=== PATIENT | female | born 1960 | race Caucasian/White ===

== ENCOUNTER 2021-07-22 08:53 | Inpatient (IN) | payer BC ==
[~2021-07-22] VITALS: Ht 165.1 cm; Wt 79.5 kg
[2021-07-22] VITALS (7 sets, daily range): BP systolic 117–134; BP diastolic 57–69
[2021-07-22] MEDS ORDERED: CefTRIAXone 2gm/NS 100ml IVPB 100 ML IV ONE (09:05)
[2021-07-22] MEDS ORDERED: normal saline 1000ml 1,000 ML IV SCH ×2 (09:05→11:20)
--- NOTE | 2021-07-22 09:05 | NUR ---
pt with slurred speech able to give us her birthdate. moans to pain.
[2021-07-22] MEDS: normal saline 1000ml 1,000 ML IV SCH ×9 (09:16→23:00)
[2021-07-22] MEDS ORDERED: diltiazem 5mg/ml 5ml inj. IV ONE (09:20)
--- NOTE | 2021-07-22 09:20 | NUR ---
TEMP 96.3 BEAR HUGGER APPLIED.
[2021-07-22 09:45] LABS: ABG BASE EXCESS -32.4 mmol/L (-2.0-2.0); ABG HCO3 1.6 mmol/L (22.0-26.0); ABG OXYGEN SATURATION 98.3 % (94-97); ABG PCO2 (T) 10.7 mmHg (32.0-45.0); ABG PO2 (T) 140.7 mmHg (75.0-100.0); ALLEN'S TEST POSITIVE; FCOHb 0.4 % (0.0-3.9); FMetHb 0.2 % (0.0-1.5); FO2Hb 97.7 % (94-97); PATIENT TEMPERATURE 35.7; TOTAL HEMOGLOBIN 13.9 G/dl (12.0-16.0)
[2021-07-22 09:54] LABS: BASOPHILS # (AUTO) 0.1 X10'3 (0-0.2); BASOPHILS % (AUTO) 0.3 % (0-1); EOSINOPHILS % (AUTO) 0.1 % (0-6); LYMPHOCYTES # (AUTO) 2.4 X10'3 (1.1-4.8); LYMPHOCYTES % (AUTO) 10.4 % (21-51); MEAN PLATELET VOLUME 10.7 FL (7.4-10.4); MONOCYTES # (AUTO) 1.7 X10'3 (0-0.9); MONOCYTES % (AUTO) 7.5 % (2-12); NEUTROPHILS # (AUTO) 18.6 X10'3 (1.8-7.7); NEUTROPHILS % (AUTO) 81.7 % (42-75); PLATELET COUNT 523 X10'3 (140-440); RED CELL DISTRIBUTION WIDTH 15.6 % (11.5-14.5); WHITE BLOOD COUNT 22.8 X10'3 (4.5-11.0)
[2021-07-22 10:17] LABS: CLARITY,URINE CLEAR (Clear); GLUCOSE, URINE >=1000 mg/dl (Neg); KETONES,URINE >=80 mg/dl (Neg); LEUKOCYTE ESTERASE ,URINE NEGATIVE (Neg); NITRITES, URINE NEGATIVE (Neg); OCCULT BLOOD,URINE MODERATE (Neg); PH,URINE 5.5 (4.8-8.0); PROTEIN,URINE 30 mg/dl (Neg); UROBILINOGEN,URINE 0.2 E.U/dL (0.2-1.0)
[2021-07-22] MEDS: insulin regular, human U-100 3ml vial - multi-dose IV PRN ×2 (10:18→11:27)
[2021-07-22 10:19] LABS: HEMATOCRIT 39.5 % (35.0-45.0); HEMOGLOBIN 13.6 g/dl (12.0-16.0); MEAN CORPUSCULAR HEMOGLOBIN 27.7 PG (27.0-31.0); MEAN CORPUSCULAR HGB CONC 34.4 g/dL (33.0-36.5); MEAN CORPUSCULAR VOLUME 80.5 FL (78-98)
[2021-07-22 10:23] LABS: COLOR,URINE STRAW (Yellow); UA COLLECTION TYPE FOLEY CATH
[2021-07-22] MEDS: sodium bicarbonate (8.4%) inj. 100 MEQ in dextrose 5%-water 1,000 ML IV SCH ×2 (10:25→20:55)
[2021-07-22 10:26] LABS: RBC,URINE 0-2 /HPF (0-2); WBC,URINE 0-4 /HPF (0-4)
[2021-07-22 10:27] LABS: BACTERIA,URINE FEW /HPF (Neg); COARSE GRANULAR CAST 0-3 /LPF (NEGATIVE); FINE GRANULAR CAST 0-3 /LPF (NEGATIVE); HYALINE CASTS 0-3 /LPF (NEGATIVE); MUCUS STRANDS FEW /LPF (Neg); SQUAMOUS EPITHELIAL CELL,UR FEW /LPF (FEW)
[2021-07-22] MEDS ORDERED: vancomycin/NS 1 GM ADD-VANTAGE 250 ML IV ONE (10:30)
[2021-07-22 10:34] LABS: ALANINE AMINOTRANSFERASE 20 U/L (12-78); ALBUMIN 3.8 G/DL (3.4-5.0); ALKALINE PHOSPHATASE 123 IU/L (46-116); ASPARTATE AMINO TRANSFERASE 20 U/L (10-37); BILIRUBIN,TOTAL 0.4 MG/DL (0.1-1.0); BLOOD UREA NITROGEN 28 MG/DL (7-18); BUN/CREATININE RATIO 22.8 (6.6-38.0); CALCIUM 9.3 MG/DL (8.5-10.1); CHLORIDE 108 MMOL/L (99-107); CREATININE 1.23 MG/DL (0.40-0.90); LARGE PLATELETS FEW; MAGNESIUM 2.8 MG/DL (1.5-2.4); PHOSPHORUS 4.9 MG/DL (2.3-4.5); PLATELET ESTIMATE INCREASED; SODIUM 139 MMOL/L (135-145); TOTAL CELLS COUNTED 100; TOTAL PROTEIN 7.5 G/DL (6.4-8.2); eGFR 44 ML/MIN
[2021-07-22 10:37] LABS: POTASSIUM 5.6 MMOL/L (3.5-5.1)
[2021-07-22 10:38] LABS: ANION GAP 26 (8-16)
[2021-07-22 10:39] LABS: GLUCOSE 533 MG/DL (70-104); TOTAL CARBON DIOXIDE < 5 MMOL/L (24-32)
[2021-07-22 11:11] LABS: ABG BASE EXCESS -33.8 mmol/L (-2.0-2.0); ABG HCO3 1.9 mmol/L (22.0-26.0); ABG PCO2 (T) 13.8 mmHg (32.0-45.0); ABG PO2 (T) 133.1 mmHg (75.0-100.0); ALLEN'S TEST POSITIVE; FCOHb 0.3 % (0.0-3.9); FMetHb 0.2 % (0.0-1.5); FO2Hb 97.5 % (94-97); TOTAL HEMOGLOBIN 13.9 G/dl (12.0-16.0)
[2021-07-22] MEDS ORDERED: potassium CL 20mEq in D5-1/2NS 1,000 ML IV PRN (11:20)
[2021-07-22] MEDS ORDERED: sodium bicarbonate (8.4%) inj. 100 MEQ in dextrose 5% water 500ml 500 ML IV PRN (11:20)
[2021-07-22] MEDS ORDERED: Insulin Reg/NS 100units/100mL 100 ML IV SCH ×2 (11:20→15:00)
--- NOTE | 2021-07-22 11:55 | NUR ---
GLASCOW: EYES OPEN TO PAIN, ,MOTOR WITHDRAWS TO PAIN, VERBAL INCOMPREHENSIBLE. TOTAL:8
--- NOTE | 2021-07-22 11:55 | NUR ---
pt unresponsive, unable answer questions. does not respond to pain. hr 90's low 100, rr 20.
[2021-07-22 12:03] LABS: CREATINE KINASE 116 U/L (26-192); ETHANOL < 0.010 GM/DL (0.0-0.010)
[2021-07-22 12:06] LABS: ACETAMINOPHEN < 2.0 UG/ML (10-30)
--- NOTE | 2021-07-22 12:16 | NUR ---
back from ct scan via gurmauricio and nurse.
--- NOTE | 2021-07-22 12:20 | NUR ---
pollution control technician at bedside.
--- NOTE | 2021-07-22 12:35 | NUR ---
pupils 2.0 non reactive to light jonnie.
[2021-07-22] MEDS ORDERED: levetiracetam inj 1,000 MG in normal saline 100ml IV soln 90 ML IV STA (12:38)
[2021-07-22] MEDS ORDERED: levetiracetam-NS 1000mg/100ml 100 ML IV STA (12:41)
--- NOTE | 2021-07-22 12:55 | NUR ---
slightly responsive to touch. hermna.
--- NOTE | 2021-07-22 13:00 | NUR ---
DRAINED ROSALES 900CC CLEAR URINE
[2021-07-22] MEDS ORDERED: LANTUS SQ (13:14)
[2021-07-22] MEDS ORDERED: METF-438 PO (13:14)
[2021-07-22] MEDS ORDERED: DULO20CA18 PO (13:14)
[2021-07-22] MEDS ORDERED: ATOR10TA70 PO (13:14)
[2021-07-22] MEDS ORDERED: GLIP10TA11 PO (13:14)
[2021-07-22] MEDS ORDERED: LEVO175T7 PO (13:14)
[2021-07-22] MEDS ORDERED: LEVE500T PO (13:14)
--- NOTE | 2021-07-22 13:54 | NUR ---
RELIEVING RN FOR BREAK, Ari BAILEY AT BEDSIDE TO TALK WITH FAMILY, PLAN TO TRANSFER TO ANOTHER FACILITY FOR HIGHER LEVEL OF CARE
--- NOTE | 2021-07-22 14:30 | NUR ---
temp 34.4, juan barajas remains on.
[2021-07-22] MEDS ORDERED: ondansetron/PF 4mg/2ml inj IV PRN (15:00)
[2021-07-22] MEDS: Insulin Reg/NS 100units/100mL 100 ML IV SCH (15:00)
[2021-07-22] MEDS ORDERED: acetaminophen 325mg tablet PO PRN ×2 (15:00)
[2021-07-22] MEDS ORDERED: sodium phosphate inj. 30 MMOL in dextrose 5%-water 250 ML IV PRN (15:00)
[2021-07-22] MEDS ORDERED: Neutra Phos packet PO PRN (15:00)
[2021-07-22] MEDS ORDERED: insulin regular, human U-100 3ml vial - multi-dose IV PRN (15:00)
[2021-07-22] MEDS ORDERED: potassium Cl 40MEQ/1/2NS 520ml 520 ML IV PRN ×2 (15:00)
[2021-07-22] MEDS ORDERED: potassium Cl 20 mEq SR tablet PO PRN ×4 (15:00)
[2021-07-22] MEDS ORDERED: magnesium hydroxide 30ml (MOM) UD suspension PO PRN (15:00)
[2021-07-22] MEDS ORDERED: sodium phosphate inj. 15 MMOL in dextrose 5%-water 250 ML IV PRN (15:00)
[2021-07-22] MEDS: enoxaparin 40mg/0.4ml syringe SUBCUT SCH (15:00)
[2021-07-22] MEDS ORDERED: dextrose 50%-water 50ml dispensing syringe IV PRN (15:00)
--- NOTE | 2021-07-22 15:00 | NUR ---
ELY AWAN CONTINUES.
--- NOTE | 2021-07-22 15:13 | NUR ---
PT DAYDAY [phone]
[2021-07-22 15:16] LABS: POTASSIUM 3.7 MMOL/L (3.5-5.1)
[2021-07-22 15:45] LABS: ALBUMIN 3.5 G/DL (3.4-5.0); BLOOD UREA NITROGEN 30 MG/DL (7-18); BUN/CREATININE RATIO 25.2 (6.6-38.0); CALCIUM 8.7 MG/DL (8.5-10.1); CHLORIDE 113 MMOL/L (99-107); CREATININE 1.19 MG/DL (0.40-0.90); GLUCOSE 363 MG/DL (70-104); SODIUM 144 MMOL/L (135-145); eGFR 46 ML/MIN
--- NOTE | 2021-07-22 15:59 | NUR ---
LEFT EYE SIZE 2.5 SLIGHT REACTION. RIGHT EYE SIZE 2.5 PUPIL REACTS GETTING LARGER TO A 3. PT RESPONDING TO NAME, ANSWERS VERBALLY "WHAT".
[2021-07-22 16:05] LABS: ANION GAP 26 (8-16)
[2021-07-22 16:08] LABS: TOTAL CARBON DIOXIDE < 5 MMOL/L (24-32)
[2021-07-22 16:12] LABS: URINE AMPHETAMINE SCREEN NEGATIVE (Neg); URINE BARBITUATE SCREEN NEGATIVE (Neg); URINE BENZODIAZEPINES SCREEN NEGATIVE (Neg); URINE CANNABINOID SCREEN NEGATIVE (Neg); URINE COCAINE SCREEN NEGATIVE (Neg); URINE METHADONE SCREEN NEGATIVE (Neg); URINE OPIATE SCREEN NEGATIVE (Neg); URINE PHENCYCLIDINE SCREEN NEGATIVE (Neg)
--- NOTE | 2021-07-22 16:24 | NUR ---
CALLED DR. MILLIGAN REPORT C02 LESS THAN 5. BG 302. PLEASE SEE NEW ORDERS.
[2021-07-22] MEDS ORDERED: Potassium Cl inj 40 MEQ in normal saline 250ml IV soln 250 ML IV ONE (16:25)
[2021-07-22] MEDS ORDERED: potassium Cl 10 mEq/100mL bag IV ONE (16:45)
--- NOTE | 2021-07-22 17:05 | NUR ---
left pupil reacted sluggish, right pupil reacted slower that left. pt opens eyes to answer verbally and will nod head yes or no to answer. more alert than earlier.
[2021-07-22] MEDS ORDERED: ringers solution, lacted 1,000 ML IV ONE (17:45)
[2021-07-22] MEDS: dextrose 5%-1/2 normal saline 1,000 ML IV SCH (17:45)
[2021-07-22] MEDS: insulin Lispro (HumaLOG) vial - multi-dose SQ SCH (18:00)
[2021-07-22] MEDS: potassium Cl 10 mEq/100mL bag IV SCH ×3 (18:00→20:00)
[2021-07-22] MEDS: potassium CL 20mEq in D5-1/2NS 1,000 ML IV PRN (19:09)
[2021-07-22] MEDS: K and/or MAG REPLACEMENT MC SCH (20:00)
[2021-07-22] MEDS: docusate sod 100mg capsule PO SCH (20:00)
[2021-07-22] MEDS ORDERED: levetiracetam inj 500 MG in normal saline 100ml IV soln 95 ML IV SCH (20:00)
[2021-07-22] MEDS: famotidine/PF 10 mg/ml inj IV SCH (20:35)
[2021-07-22] MEDS: Levetiracetam-NS 500mg/100ml 100 ML IV SCH (20:52)
[2021-07-22 21:39] LABS: ALBUMIN 2.8 G/DL (3.4-5.0); ANION GAP 21 (8-16); BLOOD UREA NITROGEN 28 MG/DL (7-18); BUN/CREATININE RATIO 25.2 (6.6-38.0); CHLORIDE 119 MMOL/L (99-107); CREATININE 1.11 MG/DL (0.40-0.90); GLUCOSE 211 MG/DL (70-104); POTASSIUM 3.9 MMOL/L (3.5-5.1); SODIUM 146 MMOL/L (135-145); eGFR 50 ML/MIN
[2021-07-22 21:42] LABS: PHOSPHORUS 0.9 MG/DL (2.3-4.5); TOTAL CARBON DIOXIDE 6.2 MMOL/L (24-32)
--- NOTE | 2021-07-22 22:04 | NUR ---
Spoke with Dr Dyson about the patients critical labs of CO2 of 6.2 and Phos 0.9, discussed previous readings too, will continue to monitor and assess for further results. BMP drawn q6h and Phos. Patient resting in bed at this time. No C/O pain or discomfort noted. Will continue to monitor.
[2021-07-23] VITALS (24 sets, daily range): BP systolic 125–168; BP diastolic 58–84
[2021-07-23] MEDS: dextrose 5%-1/2 normal saline 1,000 ML IV SCH ×4 (00:10→20:01)
[2021-07-23] MEDS: potassium CL 20mEq in D5-1/2NS 1,000 ML IV PRN ×2 (01:18→07:25)
[2021-07-23] MEDS: normal saline 1000ml 1,000 ML IV SCH ×5 (03:00→23:00)
[2021-07-23 03:33] LABS: BASOPHILS % (AUTO) 0.3 % (0-1); EOSINOPHILS % (AUTO) 0 % (0-6); HEMATOCRIT 36.8 % (35.0-45.0); HEMOGLOBIN 12.2 g/dl (12.0-16.0); LYMPHOCYTES # (AUTO) 1.4 X10'3 (1.1-4.8); MEAN CORPUSCULAR HEMOGLOBIN 27.3 PG (27.0-31.0); MEAN CORPUSCULAR VOLUME 82.7 FL (78-98); MEAN PLATELET VOLUME 9.5 FL (7.4-10.4); MONOCYTES # (AUTO) 1.3 X10'3 (0-0.9); MONOCYTES % (AUTO) 10.5 % (2-12); NEUTROPHILS # (AUTO) 9.9 X10'3 (1.8-7.7); NEUTROPHILS % (AUTO) 78.2 % (42-75); PLATELET COUNT 283 X10'3 (140-440); RED BLOOD COUNT 4.45 X10'6 (4.20-5.60); RED CELL DISTRIBUTION WIDTH 14.6 % (11.5-14.5); WHITE BLOOD COUNT 12.7 X10'3 (4.5-11.0)
[2021-07-23] MEDS: Insulin Reg/NS 100units/100mL 100 ML IV SCH (03:38)
[2021-07-23 03:39] LABS: ABG BASE EXCESS -18.7 mmol/L (-2.0-2.0); ABG HCO3 7.9 mmol/L (22.0-26.0); ABG OXYGEN SATURATION 97.7 % (94-97); ABG PCO2 (T) 22.1 mmHg (32.0-45.0); ABG PO2 (T) 99.1 mmHg (75.0-100.0); ALLEN'S TEST POSITIVE; FCOHb 0.3 % (0.0-3.9); FMetHb 0.2 % (0.0-1.5); FO2Hb 97.2 % (94-97); PATIENT TEMPERATURE 37.1; TOTAL HEMOGLOBIN 12.5 G/dl (12.0-16.0)
[2021-07-23 03:46] LABS: ALBUMIN 2.9 G/DL (3.4-5.0); ANION GAP 15 (8-16); BLOOD UREA NITROGEN 28 MG/DL (7-18); BUN/CREATININE RATIO 22.4 (6.6-38.0); CALCIUM 8.6 MG/DL (8.5-10.1); CHLORIDE 119 MMOL/L (99-107); CREATININE 1.25 MG/DL (0.40-0.90); GLUCOSE 183 MG/DL (70-104); MAGNESIUM 1.9 MG/DL (1.5-2.4); POTASSIUM 3.3 MMOL/L (3.5-5.1); SODIUM 144 MMOL/L (135-145); eGFR 43 ML/MIN
[2021-07-23 03:52] LABS: PHOSPHORUS 0.8 MG/DL (2.3-4.5); TOTAL CARBON DIOXIDE 9.9 MMOL/L (24-32)
[2021-07-23] MEDS ORDERED: potassium phosphate inj 30 MMOL in normal saline 500ml IV soln 500 ML IV ONE (04:20)
--- NOTE | 2021-07-23 04:26 | NUR ---
Spoke with Dr Phillip regarding the patients labs and all critical results, new orders received. Patient opens her eyes to her name and is resting in bed. Seizure precautions remain in place. Patients temperature 37.1 C and the juan hugger has been off since 2099. Patient turned q2h with assistance of two. She has not C/O pain or discomfort this shift. Bed low and locked for patient safety with bed alarms on. Call dickson within patient reach. Will administer ordered medications and continue to monitor.
--- NOTE | 2021-07-23 06:17 | NUR ---
Problems reprioritized. Patient report given, questions answered & plan of care reviewed with Brayden HAZEL.
[2021-07-23] MEDS ORDERED: levoTHYROXINE 175mcg tablet PO SCH (07:00)
[2021-07-23] MEDS: sodium bicarbonate (8.4%) inj. 100 MEQ in dextrose 5%-water 1,000 ML IV SCH (07:33)
[2021-07-23] MEDS: docusate sod 100mg capsule PO SCH ×2 (07:36→20:00)
[2021-07-23] MEDS ORDERED: K and/or MAG REPLACEMENT MC SCH (08:00)
[2021-07-23] MEDS: K and/or MAG REPLACEMENT MC SCH ×2 (08:00→20:00)
[2021-07-23] MEDS: enoxaparin 40mg/0.4ml syringe SUBCUT SCH (08:11)
[2021-07-23] MEDS: famotidine/PF 10 mg/ml inj IV SCH ×2 (08:11→19:59)
[2021-07-23] MEDS: Levetiracetam-NS 500mg/100ml 100 ML IV SCH ×2 (08:54→19:59)
[2021-07-23] MEDS: insulin Lispro (HumaLOG) vial - multi-dose SQ SCH ×4 (09:00→22:16)
--- NOTE | 2021-07-23 11:30 | NUR ---
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 Pt takes Glipizide Q12H, metformin Q12H, and insulin glargine 15 units HS at home per EMR. Glu 152mg/dl this AM down from 533mg/dl on admit per EMR; A1C pending w/ no prior A1C hx. Pt currently NPO unable to take PO per RN; on insulin drip and receiving Na-bicarb/D5W at 100ml/hr providing 408 kcals/day. Phos 0.8 receiving replacement per protocol. Eric 12 w/ no edema/wounds noted per EMR. Pt reports 2-13 pounds wt loss but also unsure of wt loss hx and decreasing intake at least past week per RN Malnutrition Screen; unsure of accuracy given AOx1/confused per EMR. Pt appears WD/WN during critical care rounds this AM and does not meet minimum malnutrition criteria at this time. Will monitor for A1C results and further nutrition intervention needs this admit. Rec: 1. advance diet as medically indicated to carb controlled; consider RADIOLOGIC TECHNOLOGIST MAMMOGRAM BSS prior to PO given encephalopathy 2. once PO; monitor for ONS needs pending intake trends 3. routine bowel care 4. weekly wts 5. monitor for A1C results and appropriateness for DM education this admit Addendum: 07/23/21 at [address] Amended: Links added.
[2021-07-23 11:45] LABS: HEMOGLOBIN A1C 12.1 % (4.5-6.2)
[2021-07-23] MEDS: levoTHYROXINE sod inj. 100mcg/5 ml vial IV SCH (11:45)
[2021-07-23] MEDS: sodium bicarbonate (8.4%) inj. 150 MEQ in dextrose 5%-water 1,000 ML IV SCH ×2 (11:52→20:02)
[2021-07-23 12:40] LABS: ALBUMIN 2.7 G/DL (3.4-5.0); BLOOD UREA NITROGEN 30 MG/DL (7-18); BUN/CREATININE RATIO 24.4 (6.6-38.0); CALCIUM 8.5 MG/DL (8.5-10.1); CREATININE 1.23 MG/DL (0.40-0.90); GLUCOSE 172 MG/DL (70-104); MAGNESIUM 1.8 MG/DL (1.5-2.4); PHOSPHORUS 1.7 MG/DL (2.3-4.5); eGFR 44 ML/MIN
[2021-07-23 12:46] LABS: ANION GAP 12 (8-16); CHLORIDE 121 MMOL/L (99-107); POTASSIUM 3.4 MMOL/L (3.5-5.1); SODIUM 143 MMOL/L (135-145)
[2021-07-23 13:04] LABS: TOTAL CARBON DIOXIDE 10.4 MMOL/L (24-32)
--- NOTE | 2021-07-23 13:21 | NUR ---
Dr. gamble informed of new lab results from 929 BMP, machine in lab was down so results called to me around 1315. K - 3.4. Ordered to replace 40 meq of potassium. Gap closed at 12, D5 1/2 with 20k and insulin gtt to be turned off one hour after Lantus administration.
[2021-07-23] MEDS ORDERED: insulin glargine (Lantus) pen - multi-dose SQ ONE (13:35)
[2021-07-23] MEDS: potassium CL 10mEq/100ml bag 100 ML IV PRN ×4 (15:17→20:11)
[2021-07-23 16:11] LABS: ALANINE AMINOTRANSFERASE 15 U/L (12-78); ALBUMIN 2.6 G/DL (3.4-5.0); ALBUMIN/GLOBULIN RATIO 0.9 (1.1-1.5); ALKALINE PHOSPHATASE 89 IU/L (46-116); ANION GAP 14 (8-16); ASPARTATE AMINO TRANSFERASE 23 U/L (10-37); BILIRUBIN,TOTAL 0.2 MG/DL (0.1-1.0); BLOOD UREA NITROGEN 26 MG/DL (7-18); BUN/CREATININE RATIO 21.8 (6.6-38.0); CALCIUM 8.1 MG/DL (8.5-10.1); CHLORIDE 119 MMOL/L (99-107); CREATININE 1.19 MG/DL (0.40-0.90); GLUCOSE 171 MG/DL (70-104); MAGNESIUM 1.5 MG/DL (1.5-2.4); PHOSPHORUS 1.7 MG/DL (2.3-4.5); SODIUM 143 MMOL/L (135-145); TOTAL PROTEIN 5.5 G/DL (6.4-8.2); eGFR 46 ML/MIN
[2021-07-23 16:15] LABS: POTASSIUM 3.4 MMOL/L (3.5-5.1)
[2021-07-23 16:19] LABS: TOTAL CARBON DIOXIDE 10.5 MMOL/L (24-32)
[2021-07-23] MEDS ORDERED: furosemide 20 MG/2 ML vial IV ONE (17:40)
[2021-07-23] MEDS: nystatin 15 GM powder TP SCH (20:02)
[2021-07-23 20:40] LABS: ALBUMIN 2.7 G/DL (3.4-5.0); ANION GAP 13 (8-16); BLOOD UREA NITROGEN 24 MG/DL (7-18); CHLORIDE 114 MMOL/L (99-107); CREATININE 1.33 MG/DL (0.40-0.90); GLUCOSE 302 MG/DL (70-104); MAGNESIUM 1.4 MG/DL (1.5-2.4); PHOSPHORUS 1.7 MG/DL (2.3-4.5); POTASSIUM 4.3 MMOL/L (3.5-5.1); SODIUM 141 MMOL/L (135-145); eGFR 40 ML/MIN
[2021-07-23 20:50] LABS: TOTAL CARBON DIOXIDE 13.8 MMOL/L (24-32)
--- NOTE | 2021-07-23 22:58 | NUR ---
Problems reprioritized. Patient report given, questions answered & plan of care reviewed with Anay HAZEL and patient transported to her care with tele box on and assist of 2.
--- NOTE | 2021-07-23 23:00 | NUR ---
Received report from ICU nurse ILIR Parker and assumed care of nurse. Per IILR Parker DKA protocol was discontinued prior to transferring patient. Pt is on bicarb 100 ml/hr. Pt is stable at this time. Temp 98.6 HR 102, Resp 19. O2 97, Bp 156/65. Will continue to monitor.
[2021-07-24] VITALS (7 sets, daily range): BP systolic 136–180; BP diastolic 74–92
[2021-07-24] MEDS: sodium bicarbonate (8.4%) inj. 150 MEQ in dextrose 5%-water 1,000 ML IV SCH ×2 (00:41→22:10)
[2021-07-24] MEDS: dextrose 5%-1/2 normal saline 1,000 ML IV SCH ×2 (02:50→09:30)
--- NOTE | 2021-07-24 06:14 | NUR ---
Problems reprioritized. Patient report given, questions answered & plan of care reviewed with Rajan.
--- NOTE | 2021-07-24 06:43 | NUR ---
Patient in room PCU 3014. I have received report from Jamilah and had the opportunity to ask questions and assume patient care.
[2021-07-24] MEDS: normal saline 1000ml 1,000 ML IV SCH ×5 (07:00→21:30)
[2021-07-24] MEDS: Insulin Reg/NS 100units/100mL 100 ML IV SCH ×2 (07:00→11:27)
[2021-07-24 07:17] LABS: BASOPHILS % (AUTO) 0.1 % (0-1); EOSINOPHILS % (AUTO) 0 % (0-6); HEMATOCRIT 34.5 % (35.0-45.0); HEMOGLOBIN 11.7 g/dl (12.0-16.0); LYMPHOCYTES # (AUTO) 0.6 X10'3 (1.1-4.8); LYMPHOCYTES % (AUTO) 8.5 % (21-51); MEAN CORPUSCULAR HEMOGLOBIN 27.1 PG (27.0-31.0); MEAN CORPUSCULAR VOLUME 79.6 FL (78-98); MEAN PLATELET VOLUME 9.8 FL (7.4-10.4); MONOCYTES # (AUTO) 0.7 X10'3 (0-0.9); MONOCYTES % (AUTO) 9.2 % (2-12); NEUTROPHILS # (AUTO) 6.1 X10'3 (1.8-7.7); NEUTROPHILS % (AUTO) 82.2 % (42-75); PLATELET COUNT 250 X10'3 (140-440); RED BLOOD COUNT 4.33 X10'6 (4.20-5.60); WHITE BLOOD COUNT 7.4 X10'3 (4.5-11.0)
[2021-07-24 07:31] LABS: ALBUMIN 2.5 G/DL (3.4-5.0); ANION GAP 16 (8-16); BLOOD UREA NITROGEN 22 MG/DL (7-18); BUN/CREATININE RATIO 18.6 (6.6-38.0); CHLORIDE 109 MMOL/L (99-107); CREATININE 1.18 MG/DL (0.40-0.90); GLUCOSE 389 MG/DL (70-104); MAGNESIUM 1.4 MG/DL (1.5-2.4); SODIUM 141 MMOL/L (135-145); TOTAL CARBON DIOXIDE 16.3 MMOL/L (24-32); eGFR 46 ML/MIN
[2021-07-24 07:37] LABS: POTASSIUM 2.5 MMOL/L (3.5-5.1)
[2021-07-24] MEDS: nystatin 15 GM powder TP SCH ×3 (07:42→22:02)
[2021-07-24] MEDS: enoxaparin 40mg/0.4ml syringe SUBCUT SCH (07:43)
[2021-07-24] MEDS: famotidine/PF 10 mg/ml inj IV SCH (07:43)
[2021-07-24] MEDS: levoTHYROXINE sod inj. 100mcg/5 ml vial IV SCH (07:44)
[2021-07-24] MEDS: docusate sod 100mg capsule PO SCH ×2 (07:44→20:00)
[2021-07-24] MEDS: K and/or MAG REPLACEMENT MC SCH ×2 (08:00→19:48)
--- NOTE | 2021-07-24 08:04 | NUR ---
Page Sent promotional table spacer PAGER ID: [phone] MESSAGE: [phone] Gracy. Please put in updated insulin orders. Thank you. Johnie PENA
[2021-07-24] MEDS: Levetiracetam-NS 500mg/100ml 100 ML IV SCH ×2 (08:12→22:09)
--- NOTE | 2021-07-24 08:18 | NUR ---
HENRI bland primary nurse Johnie. Parul U (resource RN)
[2021-07-24] MEDS ORDERED: potassium Cl 40MEQ/1/2NS 520ml 520 ML IV PRN ×2 (09:30)
[2021-07-24] MEDS ORDERED: potassium Cl 20 mEq SR tablet PO PRN ×2 (09:30)
[2021-07-24] MEDS ORDERED: normal saline 1000ml 1,000 ML IV SCH (09:30)
[2021-07-24] MEDS ORDERED: sodium phosphate inj. 30 MMOL in dextrose 5%-water 250 ML IV PRN (09:30)
[2021-07-24] MEDS ORDERED: sodium phosphate inj. 15 MMOL in dextrose 5%-water 250 ML IV PRN (09:30)
[2021-07-24] MEDS ORDERED: insulin regular, human U-100 3ml vial - multi-dose IV PRN (09:30)
[2021-07-24] MEDS ORDERED: Neutra Phos packet PO PRN (09:30)
--- NOTE | 2021-07-24 09:30 | NUR ---
Pt arousing to painful stimuli, Pt placed back on DKA gtt per verbal MD order
--- NOTE | 2021-07-24 09:30 | NUR ---
Pt obtunded. MD aware and at bedside. MD verbally placed order to re-start DKA protocol. Notified MD that K is 2.6. Charge nurse re-ordered DKA protocol with 20 mEq in fluids, with MD's verbal order. MD and charge nurse said to start insulin gtt with the k 2.6 and replace K with fluids.
--- NOTE | 2021-07-24 09:36 | NUR ---
ORDERS PUT IN TO START PATIENT BACK ON DKA PROTOCOL PER DR. PAINTER.
[2021-07-24] MEDS: Potassium Cl inj 20 MEQ in normal saline 1000ml 990 ML IV SCH ×2 (11:23→17:16)
--- NOTE | 2021-07-24 12:30 | NUR ---
Pt initial CBG when starting the DKA protocol is 389. The Q1H recheck had the CBG 383. 20 mKq with NS was increased to 150 ml/hr fro 100 mL/hr as per protocol.
[2021-07-24 12:55] LABS: ALBUMIN 2.3 G/DL (3.4-5.0); ANION GAP 16 (8-16); BLOOD UREA NITROGEN 21 MG/DL (7-18); BUN/CREATININE RATIO 17.5 (6.6-38.0); CALCIUM 7.8 MG/DL (8.5-10.1); CHLORIDE 114 MMOL/L (99-107); GLUCOSE 387 MG/DL (70-104); PHOSPHORUS 1.5 MG/DL (2.3-4.5); SODIUM 145 MMOL/L (135-145); TOTAL CARBON DIOXIDE 15.4 MMOL/L (24-32); eGFR 46 ML/MIN
[2021-07-24] MEDS: insulin Lispro (HumaLOG) vial - multi-dose SQ SCH ×2 (12:58→18:00)
[2021-07-24 12:59] LABS: POTASSIUM 2.3 MMOL/L (3.5-5.1)
--- NOTE | 2021-07-24 13:03 | NUR ---
Page Sent promotional table spacer PAGER ID: [phone] MESSAGE: [phone] [place]. HECTOR K is 2.3. 20 mKq w/ NS running at 150 ml/hr. Johnie PENA
--- NOTE | 2021-07-24 13:30 | NUR ---
Pt CBG Addendum: 07/24/21 at 1400 by Johnie Marshall RN 332. Increase of 20 mKq with NS to 200 ml/hr per protocol.
--- NOTE | 2021-07-24 13:50 | NUR ---
F/u 07/24: Pt A1C results 12.1% restarted on DKA protocol and remains NPO per EMR. Pt currently obtunded per EMR; would benefit from DM ed once appropriate prior to discharge. Rec: 1. advance diet as medically indicated to carb controlled; consider HIMS CODER BSS prior to PO given encephalopathy 2. once PO; monitor for ONS needs pending intake trends 3. routine bowel care 4. weekly wts 5. DM ed once more appropriate prior to discharge; A1C 12.1% currently obtunded restarted on DKA protocol per EMR Addendum: 07/24/21 at [address] Amended: Links added.
--- NOTE | 2021-07-24 15:11 | NUR ---
BMP ordered for primary RN Morgan. Teran PCU (resource)
--- NOTE | 2021-07-24 15:30 | NUR ---
Pharmacy called. 20 mEq in NS 1000 mL is not enough potassium to replace the 2.3. Potassium protocol started along with the 20 mEq in NS 1000.
[2021-07-24] MEDS: potassium CL 10mEq/100ml bag 100 ML IV PRN ×2 (15:52→17:15)
[2021-07-24 16:00] LABS: ALBUMIN 2.6 G/DL (3.4-5.0); ANION GAP 15 (8-16); BLOOD UREA NITROGEN 21 MG/DL (7-18); BUN/CREATININE RATIO 17.6 (6.6-38.0); CALCIUM 8.2 MG/DL (8.5-10.1); CHLORIDE 115 MMOL/L (99-107); CREATININE 1.19 MG/DL (0.40-0.90); GLUCOSE 272 MG/DL (70-104); SODIUM 148 MMOL/L (135-145); TOTAL CARBON DIOXIDE 17.9 MMOL/L (24-32); eGFR 46 ML/MIN
[2021-07-24 16:07] LABS: POTASSIUM 2.3 MMOL/L (3.5-5.1)
--- NOTE | 2021-07-24 16:30 | NUR ---
Page Sent promotional table spacer PAGER ID: [phone] MESSAGE: [phone] [place]. Evans 2.3. Pharm had K replacement protocol along w/ 20 mEq NS. BP 180/92 HR 110 Temp 100 RR 28 O2 100%. Johnie PENA
[2021-07-24] MEDS ORDERED: vancomycin inj 1,000 MG in normal saline 250ml IV soln 250 ML IV SCH (17:00)
[2021-07-24 17:01] LABS: PHOSPHORUS 1.2 MG/DL (2.3-4.5)
--- NOTE | 2021-07-24 17:04 | NUR ---
Critical page to taken for primary ILIR Teran U (Resource) PAGER ID: [phone] MESSAGE: Dr. Benjamin pt in room 3014 Chrissie Dubose had a critical phosphorus of 1.2; Parul Sisi (resource)
--- NOTE | 2021-07-24 17:06 | NUR ---
Critical Phos Critical phosphorus result of 1.2 relayed to primary RN Morgan. Teran PCU (resource)
--- NOTE | 2021-07-24 17:15 | NUR ---
Tele-health consulted about pt's neuro because pt has a limited neuro response. Pt was only slightly arousable to painful stimuli. Currently waiting for consult notes for new orders.
--- NOTE | 2021-07-24 17:43 | NUR ---
Page Sent promotional table spacer PAGER ID: [phone] MESSAGE: [phone] [place]. Please put in phosphate protocol to replace Phos of 1.2. Thank you. Johnie PENA
[2021-07-24] MEDS ORDERED: potassium phosphate inj 30 MMOL in normal saline 500ml IV soln 500 ML IV ONE (17:50)
--- NOTE | 2021-07-24 18:25 | NUR ---
Problems reprioritized. Patient report given, questions answered & plan of care reviewed with Faisal.
[2021-07-24 18:34] LABS: ALBUMIN 2.4 G/DL (3.4-5.0); ANION GAP 14 (8-16); BLOOD UREA NITROGEN 20 MG/DL (7-18); BUN/CREATININE RATIO 17.4 (6.6-38.0); CALCIUM 8.1 MG/DL (8.5-10.1); CHLORIDE 116 MMOL/L (99-107); CREATININE 1.15 MG/DL (0.40-0.90); GLUCOSE 242 MG/DL (70-104); SODIUM 148 MMOL/L (135-145); TOTAL CARBON DIOXIDE 17.9 MMOL/L (24-32); eGFR 48 ML/MIN
[2021-07-24 18:39] LABS: PHOSPHORUS 1.2 MG/DL (2.3-4.5); POTASSIUM 2.8 MMOL/L (3.5-5.1)
--- NOTE | 2021-07-24 19:24 | NUR ---
Recieved critical from lab k 2.8 phos 1.2. is aware pt is receiving replacement K and phosphate at this time.
[2021-07-24] MEDS ORDERED: K and/or MAG REPLACEMENT MC SCH (20:00)
[2021-07-25] MEDS: normal saline 1000ml 1,000 ML IV SCH ×6 (01:30→20:36)
[2021-07-25 02:00] VITALS: BP 173/95
[2021-07-25] MEDS: potassium CL 20mEq in D5-1/2NS 1,000 ML IV PRN ×2 (03:07→16:38)
[2021-07-25] MEDS: Potassium Cl inj 20 MEQ in normal saline 1000ml 990 ML IV SCH ×2 (03:50→15:30)
[2021-07-25] MEDS ORDERED: hydrALAZINE 20mg/ml inj. IV PRN (05:25)
--- NOTE | 2021-07-25 06:28 | NUR ---
Patient in room PCU 3014. I have received report from Jamilah and had the opportunity to ask questions and assume patient care.
--- NOTE | 2021-07-25 06:29 | NUR ---
Problems reprioritized and patient report given. question answered and plan of care reviewed with Johnie HAZEL.
--- NOTE | 2021-07-25 06:42 | NUR ---
Attempted PIV x 2 - unsuccessful.
[2021-07-25 06:44] LABS: BASOPHILS % (AUTO) 0.1 % (0-1); EOSINOPHILS % (AUTO) 0 % (0-6); HEMATOCRIT 33.4 % (35.0-45.0); HEMOGLOBIN 11.5 g/dl (12.0-16.0); LYMPHOCYTES # (AUTO) 1.1 X10'3 (1.1-4.8); LYMPHOCYTES % (AUTO) 10.4 % (21-51); MEAN CORPUSCULAR HEMOGLOBIN 27.3 PG (27.0-31.0); MEAN CORPUSCULAR HGB CONC 34.5 g/dL (33.0-36.5); MEAN PLATELET VOLUME 9.5 FL (7.4-10.4); MONOCYTES % (AUTO) 9.7 % (2-12); NEUTROPHILS # (AUTO) 8.1 X10'3 (1.8-7.7); NEUTROPHILS % (AUTO) 79.8 % (42-75); PLATELET COUNT 221 X10'3 (140-440); RED BLOOD COUNT 4.23 X10'6 (4.20-5.60); RED CELL DISTRIBUTION WIDTH 14.9 % (11.5-14.5); WHITE BLOOD COUNT 10.2 X10'3 (4.5-11.0)
[2021-07-25 06:59] LABS: ALBUMIN 2.1 G/DL (3.4-5.0); ANION GAP 13 (8-16); BLOOD UREA NITROGEN 18 MG/DL (7-18); BUN/CREATININE RATIO 16.7 (6.6-38.0); CALCIUM 7.5 MG/DL (8.5-10.1); CHLORIDE 116 MMOL/L (99-107); CREATININE 1.08 MG/DL (0.40-0.90); GLUCOSE 181 MG/DL (70-104); MAGNESIUM 1.4 MG/DL (1.5-2.4); PHOSPHORUS 2.1 MG/DL (2.3-4.5); SODIUM 148 MMOL/L (135-145); TOTAL CARBON DIOXIDE 18.7 MMOL/L (24-32); eGFR 51 ML/MIN
[2021-07-25 07:00] VITALS: BP 152/83
[2021-07-25 07:04] LABS: POTASSIUM 2.7 MMOL/L (3.5-5.1)
[2021-07-25 07:11] LABS: LARGE PLATELETS FEW; MICROCYTOSIS 1+; PLATELET ESTIMATE NORMAL; TOTAL CELLS COUNTED 100
[2021-07-25 07:12] LABS: TOXIC GRANULATION 1+; TOXIC VACUOLATION FEW
--- NOTE | 2021-07-25 07:15 | NUR ---
Page Sent promotional table spacer PAGER ID: [phone] MESSAGE: [phone] [place]. Paz gtt re-started. Okay to d/c? Johnie PENA
[2021-07-25] MEDS: docusate sod 100mg capsule PO SCH ×2 (07:45→20:00)
[2021-07-25] MEDS: insulin Lispro (HumaLOG) vial - multi-dose SQ SCH ×3 (08:49→17:15)
[2021-07-25] MEDS: potassium CL 10mEq/100ml bag 100 ML IV PRN ×3 (08:52→23:33)
[2021-07-25] MEDS: nystatin 15 GM powder TP SCH ×3 (08:53→20:44)
[2021-07-25] MEDS: K and/or MAG REPLACEMENT MC SCH ×2 (08:53→20:35)
[2021-07-25] MEDS: levoTHYROXINE sod inj. 100mcg/5 ml vial IV SCH (08:53)
[2021-07-25] MEDS: Levetiracetam-NS 500mg/100ml 100 ML IV SCH (08:53)
[2021-07-25] MEDS: famotidine/PF 10 mg/ml inj IV SCH (08:53)
[2021-07-25] MEDS: enoxaparin 40mg/0.4ml syringe SUBCUT SCH (08:56)
--- NOTE | 2021-07-25 09:53 | NUR ---
rounded on pt. Okay to stop Bicarb gtt per protocol and d/c bicarb gtt order due to pH levels. Pt is having more response by opening her eyes spontaneously today. states it is okay to stop insulin gtt to take pt down to MRI. wrote consent for a PICC to be place due to lack of IV access and multiple attempts of PIV. is aware of critically low K of 2.7. states we should also replace Mag to help increase K per protocol.
[2021-07-25 11:00] VITALS: BP 141/78
[2021-07-25] MEDS ORDERED: magnesium 4gm in 100ml NS 100 ML IV PRN (11:40)
[2021-07-25] MEDS ORDERED: magnesium Cl slow-release 64mg tablet PO PRN (11:40)
--- NOTE | 2021-07-25 12:00 | NUR ---
Pt fingers are swollen. RN removed wedding ring. Placed in denture cup with labels. Daughter came and visited at bedside. Denture cup with ring inside was given to daughter.
[2021-07-25] MEDS: potassium CL 10mEq/100ml bag 100 ML IV SCH ×5 (12:39→20:44)
[2021-07-25] MEDS: lactulose 20gm/30ml cup PO SCH ×2 (13:45→20:00)
--- NOTE | 2021-07-25 14:00 | NUR ---
When giving oral care to the patient. The patient open her eyes, and move her jaw. When asked to open to mouth to clean her tongue the patient did so. The patient also vocalized a sound during care. When asked, the patient did a slight squeeze of her hands.
--- NOTE | 2021-07-25 14:08 | NUR ---
3014a [facility]. I have verbal consent from Ernie about PICC line Addendum: 07/25/21 at 1409 by Johnie Marshall RN Page to PICC nurse
--- NOTE | 2021-07-25 14:19 | NUR ---
Pt on her way to MRI
[2021-07-25 15:00] VITALS: BP 142/67
[2021-07-25] MEDS: Insulin Reg/NS 100units/100mL 100 ML IV SCH (16:28)
[2021-07-25 16:52] LABS: ALANINE AMINOTRANSFERASE 13 U/L (12-78); ALBUMIN/GLOBULIN RATIO 0.6 (1.1-1.5); ALKALINE PHOSPHATASE 103 IU/L (46-116); ANION GAP 9 (8-16); ASPARTATE AMINO TRANSFERASE 17 U/L (10-37); BILIRUBIN,TOTAL 0.5 MG/DL (0.1-1.0); BLOOD UREA NITROGEN 19 MG/DL (7-18); BUN/CREATININE RATIO 20.7 (6.6-38.0); CALCIUM 7.6 MG/DL (8.5-10.1); CHLORIDE 115 MMOL/L (99-107); CREATININE 0.92 MG/DL (0.40-0.90); GLUCOSE 197 MG/DL (70-104); SODIUM 146 MMOL/L (135-145); TOTAL CARBON DIOXIDE 22.3 MMOL/L (24-32); TOTAL PROTEIN 5.2 G/DL (6.4-8.2); eGFR 62 ML/MIN
--- NOTE | 2021-07-25 17:00 | NUR ---
Pt has critical high K. aware. Replacing K per protocol.
--- NOTE | 2021-07-25 17:42 | NUR ---
Page Sent promotional table spacer PAGER ID: [phone] MESSAGE: [phone]. Gracy. Misha waking up and answering simple questions. Johnie PENA
[2021-07-25] MEDS ORDERED: Lactulose Enema **for rectal use only RC ONE ×2 (17:45)
--- NOTE | 2021-07-25 17:51 | NUR ---
Pt CBG at 1730 was 225. Did not increase gtt because pt had been off the gtt several times d/t procedures (MRI, PICC, CT).
[2021-07-25 18:00] VITALS: BP 156/89
--- NOTE | 2021-07-25 18:14 | NUR ---
Page Sent promotional table spacer PAGER ID: [phone] MESSAGE: [id number] Gracy. MRI review. states. Severe hydrocephalus of uncertain etiology. Johnie PENA
--- NOTE | 2021-07-25 18:33 | NUR ---
Problems reprioritized. Patient report given, questions answered & plan of care reviewed with Rober.
[2021-07-25] MEDS: magnesium 2GM in 50ml NS 50 ML IV PRN ×2 (20:46→21:48)
[2021-07-25] MEDS: levetiracetam-NS 1000mg/100ml 100 ML IV SCH (20:49)
[2021-07-25 22:00] VITALS: BP 144/81
[2021-07-25 22:22] LABS: ALBUMIN 1.8 G/DL (3.4-5.0); ANION GAP 8 (8-16); BLOOD UREA NITROGEN 18 MG/DL (7-18); BUN/CREATININE RATIO 20.2 (6.6-38.0); CALCIUM 7.6 MG/DL (8.5-10.1); CHLORIDE 113 MMOL/L (99-107); CREATININE 0.89 MG/DL (0.40-0.90); GLUCOSE 205 MG/DL (70-104); MAGNESIUM 3.2 MG/DL (1.5-2.4); POTASSIUM 3.1 MMOL/L (3.5-5.1); SODIUM 144 MMOL/L (135-145); TOTAL CARBON DIOXIDE 23.4 MMOL/L (24-32); eGFR 64 ML/MIN
[2021-07-25 22:30] LABS: PHOSPHORUS 1.2 MG/DL (2.3-4.5)
--- NOTE | 2021-07-25 22:52 | NUR ---
RN paged Dr. Bernstein at [phone] (number [phone]) to notify regarding critical phosphorous results of 1.2 and no standing protocol. Awaiting return phone call.
--- NOTE | 2021-07-25 23:06 | NUR ---
Orders received for Neutro phos packets. No return call made. RN paged Dr. Bernstein at [phone] (number [phone]) to notify that patient cannot tolerate PO medications due to AMS. Awaiting further orders.
[2021-07-25] MEDS ORDERED: potassium phosphate inj 15 MMOL in normal saline 250ml IV soln 250 ML IV ONE (23:45)
[2021-07-26] MEDS: Potassium Cl inj 20 MEQ in normal saline 1000ml 990 ML IV SCH ×2 (00:24→09:33)
[2021-07-26] MEDS: potassium CL 20mEq in D5-1/2NS 1,000 ML IV PRN (00:24)
[2021-07-26] MEDS: normal saline 1000ml 1,000 ML IV SCH ×7 (00:25→20:25)
[2021-07-26] MEDS: lactulose 20gm/30ml cup PO SCH ×4 (00:26→20:00)
[2021-07-26 02:00] VITALS: BP 137/61
[2021-07-26 02:17] LABS: BASOPHILS % (AUTO) 0.2 % (0-1); EOSINOPHILS % (AUTO) 0.4 % (0-6); HEMATOCRIT 33.5 % (35.0-45.0); HEMOGLOBIN 11.3 g/dl (12.0-16.0); LYMPHOCYTES # (AUTO) 1.2 X10'3 (1.1-4.8); MEAN CORPUSCULAR HEMOGLOBIN 26.8 PG (27.0-31.0); MEAN CORPUSCULAR HGB CONC 33.7 g/dL (33.0-36.5); MEAN CORPUSCULAR VOLUME 79.7 FL (78-98); MONOCYTES # (AUTO) 0.5 X10'3 (0-0.9); NEUTROPHILS # (AUTO) 6.4 X10'3 (1.8-7.7); NEUTROPHILS % (AUTO) 78.4 % (42-75); PLATELET COUNT 186 X10'3 (140-440); RED BLOOD COUNT 4.21 X10'6 (4.20-5.60); RED CELL DISTRIBUTION WIDTH 14.8 % (11.5-14.5); WHITE BLOOD COUNT 8.1 X10'3 (4.5-11.0)
[2021-07-26 02:24] LABS: ALBUMIN 1.9 G/DL (3.4-5.0); ANION GAP 8 (8-16); BLOOD UREA NITROGEN 18 MG/DL (7-18); BUN/CREATININE RATIO 21.7 (6.6-38.0); CALCIUM 7.6 MG/DL (8.5-10.1); CHLORIDE 114 MMOL/L (99-107); CREATININE 0.83 MG/DL (0.40-0.90); GLUCOSE 181 MG/DL (70-104); MAGNESIUM 3.4 MG/DL (1.5-2.4); SODIUM 143 MMOL/L (135-145); TOTAL CARBON DIOXIDE 21.1 MMOL/L (24-32); eGFR 70 ML/MIN
[2021-07-26 02:27] LABS: POTASSIUM 2.9 MMOL/L (3.5-5.1)
[2021-07-26] MEDS: potassium Cl 20mEq/100mL bag 100 ML IV PRN ×4 (02:51→06:17)
[2021-07-26 03:29] LABS: TOTAL CELLS COUNTED 100
[2021-07-26 03:30] LABS: MICROCYTOSIS 1+; PLATELET ESTIMATE NORMAL
[2021-07-26 03:36] LABS: LARGE PLATELETS FEW
[2021-07-26 03:37] LABS: BURR CELLS FEW
[2021-07-26 06:00] VITALS: BP 137/78
--- NOTE | 2021-07-26 06:30 | NUR ---
Patient in room [place] [address]. I have received report from ILIR Booth and had the opportunity to ask questions and assume patient care. Addendum: 07/26/21 at 0715 by Haylee Koch RN Patient in room [place] [address]. I have received report from ILIR Richter and had the opportunity to ask questions and assume patient care.
[2021-07-26] MEDS: docusate sod 100mg capsule PO SCH ×2 (08:00→20:00)
[2021-07-26] MEDS ORDERED: Neutra Phos packet PO SCH ×2 (08:00→13:00)
[2021-07-26] MEDS: K and/or MAG REPLACEMENT MC SCH ×2 (08:00→20:13)
[2021-07-26] MEDS: levetiracetam-NS 1000mg/100ml 100 ML IV SCH ×2 (08:36→20:15)
[2021-07-26] MEDS: levoTHYROXINE sod inj. 100mcg/5 ml vial IV SCH (08:36)
[2021-07-26] MEDS: famotidine/PF 10 mg/ml inj IV SCH (08:36)
[2021-07-26] MEDS: enoxaparin 40mg/0.4ml syringe SUBCUT SCH (08:39)
[2021-07-26] MEDS: nystatin 15 GM powder TP SCH ×3 (08:39→20:15)
[2021-07-26] MEDS: insulin Lispro (HumaLOG) vial - multi-dose SQ SCH ×3 (09:00→19:16)
[2021-07-26 09:34] LABS: ALBUMIN 1.6 G/DL (3.4-5.0); BLOOD UREA NITROGEN 16 MG/DL (7-18); BUN/CREATININE RATIO 19.3 (6.6-38.0); CALCIUM 7.2 MG/DL (8.5-10.1); CREATININE 0.83 MG/DL (0.40-0.90); GLUCOSE 189 MG/DL (70-104); PHOSPHORUS 1.4 MG/DL (2.3-4.5); eGFR 70 ML/MIN
[2021-07-26 09:42] LABS: TOTAL CARBON DIOXIDE 20.6 MMOL/L (24-32)
[2021-07-26 10:42] LABS: ANION GAP 7 (8-16); CHLORIDE 115 MMOL/L (99-107); POTASSIUM 4.5 MMOL/L (3.5-5.1); SODIUM 143 MMOL/L (135-145)
[2021-07-26 11:00] VITALS: BP 147/84
--- NOTE | 2021-07-26 11:52 | NUR ---
PAGER ID: [phone] MESSAGE: Room: 8314A: Gracy: Pt's repeat phosphorus level is 1.4. Need a medication order to replenish this. Thank you! ILIR Leach 9402
[2021-07-26 12:37] LABS: ALBUMIN 1.7 G/DL (3.4-5.0); ANION GAP 8 (8-16); BLOOD UREA NITROGEN 15 MG/DL (7-18); BUN/CREATININE RATIO 17.9 (6.6-38.0); CALCIUM 7.2 MG/DL (8.5-10.1); CHLORIDE 113 MMOL/L (99-107); CREATININE 0.84 MG/DL (0.40-0.90); GLUCOSE 193 MG/DL (70-104); PHOSPHORUS 1.3 MG/DL (2.3-4.5); POTASSIUM 4.3 MMOL/L (3.5-5.1); SODIUM 140 MMOL/L (135-145); TOTAL CARBON DIOXIDE 19.2 MMOL/L (24-32); eGFR 69 ML/MIN
--- NOTE | 2021-07-26 14:08 | NUR ---
PRESSURE ULCER EDUCATION: DEFINITION: A pressure ulcer is an area of skin that breaks down when you stay in one position too long. The constant pressure against the skin reduces the blood flow to that area and the affected tissue dies. CAUSES: "Being bedridden or in a wheelchair "Fragile skin "Having a chronic condition, such as diabetes or vascular disease "Inability to move certain parts of your body without assistance "Older age "Incontinence of urine or stool SYMPTOMS: "A reddened area that DOES NOT turn white when pressed on - this can be the beginning of a pressure ulcer "A blister, deep sore or a crater - these can be advanced pressure ulcers FIRST AID: "Relieve the pressure on this area "Keep the area clean and dry "Call your primary doctor if you see any of the above symptoms "DO NOT massage the area "DO NOT use a donut shaped or ring shaped pillow- these actually interfere with the blood flow and cause complications PREVENTION: "Check for pressure ulcers everyday "Change position at least every two hours to relieve pressure "Use items that help relieve pressure- pillows, sheepskin, foam padding, and powders. "Keep skin clean and dry "Eat healthy well balanced meals "Exercise daily IF YOU SEE ANY OF THESE SYMPTOMS WHILE IN THE HOSPITAL - TELL YOUR NURSE IMMEDIATELY. IF YOU SEE ANY OF THESE SYMPTOMS WHILE AT HOME OR HAVE ANY QUESTIONS OR CONCERNS ABOUT PRESSURE ULCERS - CALL YOUR PRIMARY DOCTOR IMMEDIATELY. Addendum: 07/26/21 at 1408 by Chrissie Hernandes LVN Amended: Links added.
--- NOTE | 2021-07-26 14:36 | NUR ---
Reassessment: Pt DKA improving w/ anion gap closed and weaning from insulin drip per MD note. Advance to SB6/thin diet this AM per MANUAL WRITER recs following initial 4 days NPO. Does have feeder assistance w/ meal and feeder sign on door. Pt flaccid strength persists likely impacted by persistent critically low Phos this admit 1.3 mg/dl this AM w/ routine K-Phos to start today per EMR. Pt started waking up today per MD note; previously AOx2/confused per EMR. RD d/w RN who reports pt still working on first meal late lunch tray at this time; is a slow eater given weakness. Pt sleeping and lunch tray no longer in room during RD visit but given prolonged NPO period and flaccid strength requiring feeder would benefit from Ensure Enlive TIDWM; MD notified. Pt recently moved to [facility] and trying to find PCP since June non-compliant w/ meds per MD note. First BM this admit 07/25 multiple receiving routine colace per EMR. Will monitor for further nutrition intervention needs this admit; will benefit from DM ed once more appropriate prior to discharge given A1C 12.1%. Rec: 1. Continue SB6/thin diet per MANUAL WRITER recs; consider carb controlled restriction IF PO trends adequate; feeder w/ meals 2. Ensure Enlive TIDWM; pending MD verification by MD in EMR 3. routine bowel care 4. weekly wts 5. DM ed once more appropriate prior to discharge; A1C 12.1% starting to wake up per note Addendum: 07/26/21 at [address] Amended: Links added.
[2021-07-26 15:00] VITALS: BP 137/81
[2021-07-26] MEDS ORDERED: Neutra Phos packet PO PRN (15:17)
--- NOTE | 2021-07-26 15:56 | NUR ---
PAGER ID: [phone] MESSAGE: [id number]: Giuliaedna: I see that you've changed her IV fluids to NS with 20KCl. Do you want to titrate her insulin drip down to 1 or turn it off? ILIR Leach [phone]
[2021-07-26] MEDS: potassium Cl 20mEq in NS 1,000 ML IV SCH (16:32)
[2021-07-26 16:48] LABS: ALBUMIN 1.8 G/DL (3.4-5.0); ANION GAP 6 (8-16); BLOOD UREA NITROGEN 14 MG/DL (7-18); BUN/CREATININE RATIO 14.4 (6.6-38.0); CALCIUM 7.5 MG/DL (8.5-10.1); CHLORIDE 111 MMOL/L (99-107); CREATININE 0.97 MG/DL (0.40-0.90); GLUCOSE 226 MG/DL (70-104); PHOSPHORUS 1.5 MG/DL (2.3-4.5); POTASSIUM 4.3 MMOL/L (3.5-5.1); SODIUM 138 MMOL/L (135-145); TOTAL CARBON DIOXIDE 20.9 MMOL/L (24-32); eGFR 58 ML/MIN
[2021-07-26] MEDS: Insulin Reg/NS 100units/100mL 100 ML IV SCH (17:55)
[2021-07-26 18:00] VITALS: BP 155/88
[2021-07-26] MEDS: lactose-reduced food (Ensure Enlive) - 237ml bottle PO SCH (18:00)
--- NOTE | 2021-07-26 18:31 | NUR ---
Problems reprioritized. Patient report given, questions answered & plan of care reviewed with ILIR Richter.
[2021-07-26] MEDS ORDERED: insulin glargine (Lantus) pen - multi-dose SQ SCH (21:00)
[2021-07-26 22:00] VITALS: BP 156/76
[2021-07-27] MEDS: potassium Cl 20mEq in NS 1,000 ML IV SCH (01:11)
[2021-07-27] MEDS: lactulose 20gm/30ml cup PO SCH ×4 (01:23→20:00)
[2021-07-27] MEDS: normal saline 1000ml 1,000 ML IV SCH ×6 (01:23→18:09)
[2021-07-27 02:00] VITALS: BP 132/66
[2021-07-27 05:05] LABS: BASOPHILS % (AUTO) 0.3 % (0-1); EOSINOPHILS # (AUTO) 0.1 X10'3 (0-0.9); EOSINOPHILS % (AUTO) 0.8 % (0-6); HEMATOCRIT 33.1 % (35.0-45.0); HEMOGLOBIN 11.2 g/dl (12.0-16.0); LYMPHOCYTES # (AUTO) 1.2 X10'3 (1.1-4.8); LYMPHOCYTES % (AUTO) 13.3 % (21-51); MEAN CORPUSCULAR HEMOGLOBIN 27.2 PG (27.0-31.0); MEAN CORPUSCULAR HGB CONC 33.7 g/dL (33.0-36.5); MEAN CORPUSCULAR VOLUME 80.7 FL (78-98); MEAN PLATELET VOLUME 9.3 FL (7.4-10.4); MONOCYTES % (AUTO) 11.4 % (2-12); NEUTROPHILS # (AUTO) 6.7 X10'3 (1.8-7.7); NEUTROPHILS % (AUTO) 74.2 % (42-75); PLATELET COUNT 208 X10'3 (140-440); RED CELL DISTRIBUTION WIDTH 15.3 % (11.5-14.5); WHITE BLOOD COUNT 9.1 X10'3 (4.5-11.0)
[2021-07-27 05:14] LABS: ALBUMIN 1.8 G/DL (3.4-5.0); ANION GAP 7 (8-16); BLOOD UREA NITROGEN 14 MG/DL (7-18); BUN/CREATININE RATIO 15.2 (6.6-38.0); CALCIUM 7.4 MG/DL (8.5-10.1); CHLORIDE 108 MMOL/L (99-107); CREATININE 0.92 MG/DL (0.40-0.90); GLUCOSE 260 MG/DL (70-104); MAGNESIUM 2.3 MG/DL (1.5-2.4); POTASSIUM 4.3 MMOL/L (3.5-5.1); SODIUM 134 MMOL/L (135-145); TOTAL CARBON DIOXIDE 18.8 MMOL/L (24-32); eGFR 62 ML/MIN
[2021-07-27 06:00] VITALS: BP 157/76
[2021-07-27] MEDS: nystatin 15 GM powder TP SCH ×3 (07:47→21:00)
[2021-07-27] MEDS: famotidine/PF 10 mg/ml inj IV SCH (07:47)
[2021-07-27] MEDS: enoxaparin 40mg/0.4ml syringe SUBCUT SCH (07:48)
[2021-07-27] MEDS: K and/or MAG REPLACEMENT MC SCH ×2 (07:49→20:00)
[2021-07-27] MEDS: levetiracetam-NS 1000mg/100ml 100 ML IV SCH (07:49)
[2021-07-27] MEDS: docusate sod 100mg capsule PO SCH ×2 (07:50→20:00)
[2021-07-27] MEDS: lactose-reduced food (Ensure Enlive) - 237ml bottle PO SCH ×3 (08:00→18:00)
[2021-07-27] MEDS: insulin Lispro (HumaLOG) vial - multi-dose SQ SCH ×3 (09:00→13:00)
[2021-07-27] MEDS ORDERED: levoTHYROXINE 175mcg tablet PO SCH (10:34)
--- NOTE | 2021-07-27 10:43 | NUR ---
pt is now eating so notified pharm to change IV medications to PO. IV Synthroid not available in [place], PO ordered arrived too late to give pt already ate breakfast.
[2021-07-27 11:00] VITALS: BP 145/78
[2021-07-27 15:00] VITALS: BP 167/62
[2021-07-27 18:00] VITALS: BP 141/84
--- NOTE | 2021-07-27 19:01 | NUR ---
Patient in room PCU 3026. I have received report from Miranda HAZEL and had the opportunity to ask questions and assume patient care.
[2021-07-27] MEDS: levetiracetam 250mg tablet PO SCH (20:00)
[2021-07-27] MEDS: famotidine 20mg tablet PO SCH (20:00)
[2021-07-27] MEDS: duloxetine 20mg capsule.DR PO SCH (21:00)
[2021-07-27] MEDS: insulin glargine (Lantus) pen - multi-dose SQ SCH (21:00)
[2021-07-27 22:00] VITALS: BP 177/76
--- NOTE | 2021-07-27 23:16 | NUR ---
Pt is Alert and able to make needs and wants know. She refused HS medications which are Lactulose, Colace,Keppra, pepcid, cymbalta, blood sugar check, q2hr turns and catheter care. There was episode of visual hallucination as patient was seeing her and the charge nurse to call him. This nurse and 2 other nurses including the charge nurse talked to her about the importance of taking medication more especially the insulin but she still remained adamant. Minh Duncan notified, who called and said its her right to refused medication as long as she is alert and oriented. Currently patient is requesting to be discharged.
[2021-07-28 02:00] VITALS: BP 163/78
[2021-07-28] MEDS: lactulose 20gm/30ml cup PO SCH ×4 (02:00→19:16)
--- NOTE | 2021-07-28 05:04 | NUR ---
At about 3am pt accepted that she be changed. Perineal area bathed, cleaned, nystatin powder and barrier cream applied. Care of Montoya catheter tube and meatus done. Bed linen was changed because pt had a large,loose stool hence total bed change done. She was turned to the left side and BLE offloaded with pillow. No change in condition. continues o be monitored.
[2021-07-28 06:00] VITALS: BP 159/81
--- NOTE | 2021-07-28 06:38 | NUR ---
Pt pulled her PIV to the RFA
--- NOTE | 2021-07-28 06:46 | NUR ---
Problems reprioritized. Patient report given, questions answered & plan of care reviewed with Miranda RN.
[2021-07-28 07:24] LABS: ALBUMIN 1.6 G/DL (3.4-5.0); ANION GAP 8 (8-16); BLOOD UREA NITROGEN 11 MG/DL (7-18); BUN/CREATININE RATIO 12.9 (6.6-38.0); CHLORIDE 111 MMOL/L (99-107); CREATININE 0.85 MG/DL (0.40-0.90); GLUCOSE 240 MG/DL (70-104); SODIUM 139 MMOL/L (135-145); TOTAL CARBON DIOXIDE 19.9 MMOL/L (24-32); eGFR 68 ML/MIN
[2021-07-28 07:26] LABS: CALCIUM 5.9 MG/DL (8.5-10.1)
--- NOTE | 2021-07-28 07:32 | NUR ---
Page Sent MESSAGE: Pt Chrissie Dubose rm [id number] has a critical calcium of 5.9. Pt also refused all treatment for shiftman. [facility] 7103
[2021-07-28 07:36] LABS: BASOPHILS % (AUTO) 0.3 % (0-1); EOSINOPHILS # (AUTO) 0.1 X10'3 (0-0.9); EOSINOPHILS % (AUTO) 1.4 % (0-6); HEMATOCRIT 28.7 % (35.0-45.0); HEMOGLOBIN 9.7 g/dl (12.0-16.0); LYMPHOCYTES # (AUTO) 1.3 X10'3 (1.1-4.8); LYMPHOCYTES % (AUTO) 18.2 % (21-51); MEAN CORPUSCULAR HEMOGLOBIN 27.4 PG (27.0-31.0); MEAN CORPUSCULAR HGB CONC 33.8 g/dL (33.0-36.5); MEAN PLATELET VOLUME 9.6 FL (7.4-10.4); MONOCYTES % (AUTO) 14.3 % (2-12); NEUTROPHILS # (AUTO) 4.6 X10'3 (1.8-7.7); NEUTROPHILS % (AUTO) 65.8 % (42-75); PLATELET COUNT 215 X10'3 (140-440); RED BLOOD COUNT 3.54 X10'6 (4.20-5.60); WHITE BLOOD COUNT 6.9 X10'3 (4.5-11.0)
[2021-07-28] MEDS: K and/or MAG REPLACEMENT MC SCH ×2 (08:00→19:16)
[2021-07-28] MEDS: lactose-reduced food (Ensure Enlive) - 237ml bottle PO SCH ×3 (08:00→18:30)
[2021-07-28] MEDS: nystatin 15 GM powder TP SCH ×3 (08:26→20:45)
[2021-07-28] MEDS: famotidine 20mg tablet PO SCH ×2 (08:27→19:27)
[2021-07-28] MEDS: levetiracetam 250mg tablet PO SCH ×2 (08:27→19:27)
[2021-07-28] MEDS: atorvastatin 10mg tablet PO SCH (08:28)
[2021-07-28] MEDS: docusate sod 100mg capsule PO SCH ×2 (08:28→19:17)
[2021-07-28] MEDS: levoTHYROXINE 175mcg tablet PO SCH (08:29)
[2021-07-28] MEDS: enoxaparin 40mg/0.4ml syringe SUBCUT SCH (08:31)
[2021-07-28] MEDS: insulin Lispro (HumaLOG) vial - multi-dose SQ SCH ×3 (09:40→19:31)
[2021-07-28 11:00] VITALS: BP 144/71
[2021-07-28] MEDS: normal saline 1000ml 1,000 ML IV SCH ×2 (11:56→19:33)
--- NOTE | 2021-07-28 14:00 | NUR ---
pt whitlock was DC'd and removed. pt is now using a purwik
[2021-07-28 15:00] VITALS: BP 149/76
--- NOTE | 2021-07-28 17:00 | NUR ---
I have reviewed and agree with all interventions, assessments performed and documented by Meera Rabago.
[2021-07-28 18:30] VITALS: BP 113/65
[2021-07-28] MEDS: duloxetine 20mg capsule.DR PO SCH (20:45)
[2021-07-28] MEDS: insulin glargine (Lantus) pen - multi-dose SQ SCH (20:53)
[2021-07-28 22:00] VITALS: BP 142/57
[2021-07-29] MEDS: lactulose 20gm/30ml cup PO SCH ×5 (01:03→22:50)
[2021-07-29 02:00] VITALS: BP 135/71
[2021-07-29] MEDS: normal saline 1000ml 1,000 ML IV SCH ×2 (05:04→16:00)
--- NOTE | 2021-07-29 06:21 | NUR ---
Problems reprioritized. Patient report given, questions answered & plan of care reviewed with ILIR Bentley.
[2021-07-29 07:00] VITALS: BP 127/87
--- NOTE | 2021-07-29 07:02 | NUR ---
Patient in room PCU 3026. I have received report from Nannette HAZEL and had the opportunity to ask questions and assume patient care.
[2021-07-29 07:03] LABS: ALBUMIN 1.6 G/DL (3.4-5.0); ANION GAP 9 (8-16); BASOPHILS % (AUTO) 0.4 % (0-1); BLOOD UREA NITROGEN 13 MG/DL (7-18); BUN/CREATININE RATIO 13.1 (6.6-38.0); CHLORIDE 108 MMOL/L (99-107); CREATININE 0.99 MG/DL (0.40-0.90); EOSINOPHILS # (AUTO) 0.1 X10'3 (0-0.9); EOSINOPHILS % (AUTO) 1.6 % (0-6); GLUCOSE 119 MG/DL (70-104); HEMATOCRIT 30.3 % (35.0-45.0); HEMOGLOBIN 10.1 g/dl (12.0-16.0); LYMPHOCYTES # (AUTO) 1.8 X10'3 (1.1-4.8); LYMPHOCYTES % (AUTO) 20.7 % (21-51); MEAN CORPUSCULAR HEMOGLOBIN 27.1 PG (27.0-31.0); MEAN CORPUSCULAR HGB CONC 33.1 g/dL (33.0-36.5); MEAN CORPUSCULAR VOLUME 81.7 FL (78-98); MEAN PLATELET VOLUME 9.9 FL (7.4-10.4); MONOCYTES # (AUTO) 1.4 X10'3 (0-0.9); MONOCYTES % (AUTO) 15.5 % (2-12); NEUTROPHILS # (AUTO) 5.5 X10'3 (1.8-7.7); NEUTROPHILS % (AUTO) 61.8 % (42-75); PLATELET COUNT 241 X10'3 (140-440); POTASSIUM 3.8 MMOL/L (3.5-5.1); RED BLOOD COUNT 3.71 X10'6 (4.20-5.60); RED CELL DISTRIBUTION WIDTH 14.7 % (11.5-14.5); SODIUM 137 MMOL/L (135-145); TOTAL CARBON DIOXIDE 19.9 MMOL/L (24-32); WHITE BLOOD COUNT 8.9 X10'3 (4.5-11.0); eGFR 57 ML/MIN
--- NOTE | 2021-07-29 07:45 | NUR ---
Pt bed was saturated in urine. full bed change was done, and PT was put on back, heels floated, and is in the semi fowlers position. Buttocks is still excoriated and cream was applied. Teresa care initiated, new purewick inserted.
[2021-07-29] MEDS: docusate sod 100mg capsule PO SCH ×2 (07:46→19:28)
[2021-07-29] MEDS: famotidine 20mg tablet PO SCH ×2 (07:46→19:36)
[2021-07-29] MEDS: enoxaparin 40mg/0.4ml syringe SUBCUT SCH (07:46)
[2021-07-29] MEDS: levoTHYROXINE 175mcg tablet PO SCH (07:46)
[2021-07-29] MEDS: nystatin 15 GM powder TP SCH ×3 (07:46→20:44)
[2021-07-29] MEDS: levetiracetam 250mg tablet PO SCH ×2 (07:46→19:35)
[2021-07-29] MEDS: atorvastatin 10mg tablet PO SCH (07:46)
[2021-07-29] MEDS: K and/or MAG REPLACEMENT MC SCH ×2 (08:00→19:27)
[2021-07-29] MEDS: lactose-reduced food (Ensure Enlive) - 237ml bottle PO SCH ×3 (08:00→18:30)
--- NOTE | 2021-07-29 08:30 | NUR ---
When doing my assessment on patient, she said she realized this morning that her wedding ring was missing. I asked her if she remembers taking it off and she said no. I asked if maybe a family member may have taken it home for her and she said not that she knew of. I told her i would look in her chart notes to see if i could find any information about it. Luckily a note was put in that her daughter took the ring home. Daughter is not in room and i confirmed that she did in fact take it home.
--- NOTE | 2021-07-29 09:08 | NUR ---
Sourav Page PAGER ID: [phone] MESSAGE: Dr Benjamin - Room Chrissie Duboes. car shifter told me we are no longer giving the lactulose post 07/28 ammonia of 18. But med order is still active? Are you still wanting patient to take it, or can it be D/C'd? Sheree [facility] [id number]
--- NOTE | 2021-07-29 09:15 | NUR ---
Upon morning assessment and med pass, patients right PIV was found in her bed and was no longer intact.
[2021-07-29] MEDS: insulin Lispro (HumaLOG) vial - multi-dose SQ SCH ×3 (09:40→19:34)
[2021-07-29 11:00] VITALS: BP 170/88
--- NOTE | 2021-07-29 13:24 | NUR ---
F/u 07/29: Pt PO ~29% avg initial SB6/thin meals though improving to ~63% avg past two meals eating ~75% starches and ~25% protein this AM for breakfast per RN via TC. Pt did consume 100% Ensure Enlive TID yesterday though refused this AM and day prior per EMR. Noted pt placed on SB6/honey thick diet 07/26 after SHIP CLEANER recs SB6/thin liquids 07/26 just returned to thin liquids this AM per EMR; RN reports pt did not like thickened liquids. Pt continues to receive max assistance w/ meals and remains confused/AOx2 per EMR; confusion and thickened liquids likely impacting PO meals/ONS trends. Given severe weakness and initial 7 days poor nutrition intake vs NPO status pt meets severe malnutrition criteria; MD notified. Noted pt last Phos 1.5mg/dl 07/26 w/ no subsequent draw and either low/critically low results majority of admit not on replacement. RD d/w RN regarding routine Phos check if MD agreeable; likely contributing to pt weakness. Given confusion written DM ed w/ RD contact information placed in pt chart. LBM 07/28 receiving routine colace and lactulose though pt now refusing lactulose w/ ammonia WNL 07/28. Will continue to monitor for further nutrition intervention needs this admit. Rec: 1. Continue SB6/thin diet per SHIP CLEANER recs; consider carb controlled restriction IF PO trends adequate; feeder w/ meals 2. Ensure Enlive TIDWM; encourage intake 3. routine bowel care 4. weekly wts Addendum: 07/29/21 at [address] Amended: Links added.
[2021-07-29 15:00] VITALS: BP 138/71
[2021-07-29 18:00] VITALS: BP 131/72
--- NOTE | 2021-07-29 18:17 | NUR ---
Problems reprioritized. Patient report given, questions answered & plan of care reviewed with Nannette HAZEL.
[2021-07-29] MEDS: insulin glargine (Lantus) pen - multi-dose SQ SCH (20:43)
[2021-07-29] MEDS: duloxetine 20mg capsule.DR PO SCH (20:44)
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
--- NOTE | 2021-07-29 21:08 | NUR ---
Patient allowed RN to recheck blood glucose, blood sugar is 60. Per hypoglycemic protocol patient should drink 15grams of carbohydrates. Patient refusing to drink anything other than apple juice. RN gave patient an additional 220mL of apple juice and will reassess patient.
[2021-07-29 22:00] VITALS: BP 150/72
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
[2021-07-30] MEDS: normal saline 1000ml 1,000 ML IV SCH ×3 (03:06→23:49)
--- NOTE | 2021-07-30 03:11 | NUR ---
patient combative and refusing to wear telemetry. Education provided. RN will continue to reassess.
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
[2021-07-30 07:00] VITALS: BP 169/79
[2021-07-30] MEDS: levoTHYROXINE 175mcg tablet PO SCH (07:42)
--- NOTE | 2021-07-30 07:53 | NUR ---
Patient in room PCU 3026. I have received report from Nannette HAZEL and had the opportunity to ask questions and assume patient care.
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
[2021-07-30] MEDS: lactose-reduced food (Ensure Enlive) - 237ml bottle PO SCH ×3 (08:00→18:00)
[2021-07-30] MEDS: K and/or MAG REPLACEMENT MC SCH ×2 (08:00→18:48)
[2021-07-30] MEDS: lactulose 20gm/30ml cup PO SCH ×3 (08:00→19:35)
[2021-07-30] MEDS: nystatin 15 GM powder TP SCH ×3 (08:00→19:38)
[2021-07-30 08:25] LABS: BASOPHILS % (AUTO) 0.3 % (0-1); EOSINOPHILS # (AUTO) 0.1 X10'3 (0-0.9); EOSINOPHILS % (AUTO) 1.4 % (0-6); HEMOGLOBIN 10.5 g/dl (12.0-16.0); LYMPHOCYTES # (AUTO) 1.1 X10'3 (1.1-4.8); LYMPHOCYTES % (AUTO) 13.2 % (21-51); MEAN CORPUSCULAR HGB CONC 32.9 g/dL (33.0-36.5); MEAN CORPUSCULAR VOLUME 82.1 FL (78-98); MEAN PLATELET VOLUME 8.8 FL (7.4-10.4); MONOCYTES % (AUTO) 11.9 % (2-12); NEUTROPHILS # (AUTO) 6.4 X10'3 (1.8-7.7); NEUTROPHILS % (AUTO) 73.2 % (42-75); PLATELET COUNT 317 X10'3 (140-440); RED CELL DISTRIBUTION WIDTH 14.5 % (11.5-14.5); WHITE BLOOD COUNT 8.7 X10'3 (4.5-11.0)
[2021-07-30 08:28] LABS: ALBUMIN 1.9 G/DL (3.4-5.0); ANION GAP 11 (8-16); BLOOD UREA NITROGEN 9 MG/DL (7-18); BUN/CREATININE RATIO 9.5 (6.6-38.0); CALCIUM 8.3 MG/DL (8.5-10.1); CHLORIDE 107 MMOL/L (99-107); CREATININE 0.95 MG/DL (0.40-0.90); GLUCOSE 221 MG/DL (70-104); POTASSIUM 3.6 MMOL/L (3.5-5.1); SODIUM 137 MMOL/L (135-145); TOTAL CARBON DIOXIDE 19.5 MMOL/L (24-32); eGFR 60 ML/MIN
--- NOTE | 2021-07-30 08:35 | NUR ---
Pt is trying to get out of bed and stating she is going to leave. is in the room. Patient started yelling profanities at myself as well as my student nurse, and other nurses that came to try and help. Kali is charge nurse today and he also came in to talk to the patient and let her know she cannot get out of bed because she is unable to walk. She told me to "get the fuck out" of her room, and that she "didnt give a shit" that i am her nurse. Sourav nunez.
--- NOTE | 2021-07-30 08:39 | NUR ---
PAGER ID: [phone] MESSAGE: [phone] Chrissie Dubose. Patient is trying to get out of bed and leave, but is unable to walk. Yelling profanities at staff and charge nurse. Is requesting discharge. is in room, would like to speak with you.
[2021-07-30 08:45] LABS: LARGE PLATELETS FEW; PLATELET ESTIMATE NORMAL; TOTAL CELLS COUNTED 100
[2021-07-30] MEDS: atorvastatin 10mg tablet PO SCH (08:58)
[2021-07-30] MEDS: famotidine 20mg tablet PO SCH ×2 (08:58→19:38)
[2021-07-30] MEDS: docusate sod 100mg capsule PO SCH ×2 (08:58→19:36)
[2021-07-30] MEDS: enoxaparin 40mg/0.4ml syringe SUBCUT SCH (08:59)
[2021-07-30] MEDS: levetiracetam 250mg tablet PO SCH ×2 (08:59→19:38)
[2021-07-30] MEDS: insulin Lispro (HumaLOG) vial - multi-dose SQ SCH ×3 (09:07→19:36)
[2021-07-30 11:00] VITALS: BP 155/75
--- NOTE | 2021-07-30 12:26 | NUR ---
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
[2021-07-30 15:00] VITALS: BP 151/76
--- NOTE | 2021-07-30 17:58 | NUR ---
Checked patients blood sugar at 1700 and her level was 43. Gave her 2 orange juices and rechecked at 1715 and her level was only 44. Gave her another orange juice with 7 packs of sugar added (She has no IV access, so this was recommended by charge nurse) rechecked at 1730 and her level had only raised to 58. Gave another orange juice with 12 packs of sugar added and patient is now eating. Will report to warehouse worker 2nd shift as it is now change of shift. Addendum: 07/30/21 at 1802 by Sheree Vargas RN Patient is asymptomatic at this time. No signs of deficits due to sugar levels
[2021-07-30 18:00] VITALS: BP 151/76
--- NOTE | 2021-07-30 18:11 | NUR ---
Rechecked patients blood sugar and it is 78.
--- NOTE | 2021-07-30 18:11 | NUR ---
Paged doctor Benjamin several times today for this patient and never received a reply. Patient continues to have no IV access which is an issue with her current low sugar problems
--- NOTE | 2021-07-30 18:12 | NUR ---
Problems reprioritized. Patient report given, questions answered & plan of care reviewed with Nannette HAZEL.
--- NOTE | 2021-07-30 18:29 | NUR ---
Patient does not have IV access and is refusing to allow RN to insert IV. Dr. Benjamin is aware
[2021-07-30] MEDS: duloxetine 20mg capsule.DR PO SCH (19:38)
--- NOTE | 2021-07-30 20:37 | NUR ---
Patient refused blood glucose check and lantus Addendum: 07/30/21 at 2037 by Nannette Marshall RN Amended: Links added.
[2021-07-30] MEDS: insulin glargine (Lantus) pen - multi-dose SQ SCH (20:39)
[2021-07-30 22:00] VITALS: BP 127/79
[2021-07-31] MEDS: lactulose 20gm/30ml cup PO SCH ×2 (01:09→08:00)
[2021-07-31 02:00] VITALS: BP 134/68
[2021-07-31 06:00] VITALS: BP 194/97
--- NOTE | 2021-07-31 06:34 | NUR ---
Report given to ILIR Fernandez. Patient in bed sleeping. No signs or symptoms of pain or distress noted.
[2021-07-31 06:38] LABS: BASOPHILS % (AUTO) 0.5 % (0-1); EOSINOPHILS # (AUTO) 0.1 X10'3 (0-0.9); HEMATOCRIT 30.3 % (35.0-45.0); LYMPHOCYTES # (AUTO) 1.2 X10'3 (1.1-4.8); LYMPHOCYTES % (AUTO) 14.8 % (21-51); MEAN CORPUSCULAR HEMOGLOBIN 26.8 PG (27.0-31.0); MEAN CORPUSCULAR HGB CONC 32.8 g/dL (33.0-36.5); MEAN CORPUSCULAR VOLUME 81.7 FL (78-98); MEAN PLATELET VOLUME 9.2 FL (7.4-10.4); MONOCYTES # (AUTO) 0.7 X10'3 (0-0.9); MONOCYTES % (AUTO) 9.2 % (2-12); NEUTROPHILS # (AUTO) 5.9 X10'3 (1.8-7.7); NEUTROPHILS % (AUTO) 74.5 % (42-75); PLATELET COUNT 370 X10'3 (140-440); RED BLOOD COUNT 3.71 X10'6 (4.20-5.60); RED CELL DISTRIBUTION WIDTH 14.4 % (11.5-14.5); WHITE BLOOD COUNT 7.9 X10'3 (4.5-11.0)
--- NOTE | 2021-07-31 06:53 | NUR ---
Patient in room PCU 3023U. I have received report from ILIR LUGO and had the opportunity to ask questions and assume patient care.
[2021-07-31 06:56] LABS: ALBUMIN 1.6 G/DL (3.4-5.0); ANION GAP 11 (8-16); BLOOD UREA NITROGEN 7 MG/DL (7-18); BUN/CREATININE RATIO 6.9 (6.6-38.0); CALCIUM 8.7 MG/DL (8.5-10.1); CHLORIDE 108 MMOL/L (99-107); CREATININE 1.02 MG/DL (0.40-0.90); GLUCOSE 301 MG/DL (70-104); POTASSIUM 3.9 MMOL/L (3.5-5.1); SODIUM 141 MMOL/L (135-145); eGFR 55 ML/MIN
[2021-07-31] MEDS: lactose-reduced food (Ensure Enlive) - 237ml bottle PO SCH (08:00)
[2021-07-31] MEDS: K and/or MAG REPLACEMENT MC SCH (08:00)
[2021-07-31] MEDS: enoxaparin 40mg/0.4ml syringe SUBCUT SCH (09:40)
[2021-07-31] MEDS: famotidine 20mg tablet PO SCH (09:40)
[2021-07-31] MEDS: docusate sod 100mg capsule PO SCH (09:40)
[2021-07-31] MEDS: levetiracetam 250mg tablet PO SCH (09:40)
[2021-07-31] MEDS: atorvastatin 10mg tablet PO SCH (09:41)
[2021-07-31] MEDS: levoTHYROXINE 175mcg tablet PO SCH (09:41)
[2021-07-31] MEDS: insulin Lispro (HumaLOG) vial - multi-dose SQ SCH (09:50)
[2021-07-31] MEDS: nystatin 15 GM powder TP SCH (09:53)
[2021-07-31] MEDS: normal saline 1000ml 1,000 ML IV SCH (10:00)
[2021-07-31 11:00] VITALS: BP 182/94
[2021-07-31 11:54] VITALS: BP 141/76
--- NOTE | 2021-07-31 13:15 | NUR ---
PATIENT STABLE AND APPROPRIATE FOR TRANSFER TO [facility], TELE REMOVED, REPORT CALLED INTO ILIR VILLASENOR FROM [facility], BELONGINGS SENT WITH FAMILY, PATIENT TAKEN TO [facility] BUT [facility] AND THEIR STAFF, FAMILY TO FOLLOW AND MEET PATIENT AT [facility]
== END 2021-07-31 13:32 | DRG 637 ==
LOC: ER 08:54 → ED HOLD 15:06 → ICU 2S 17:53 → CICU 2S 07-23 11:22 → PCU 3S 07-23 22:46
PROVIDERS: ADMIT Internal Medicine; ATTEND Internal Medicine
PROC: 4A10X4Z Monitoring of Central Nervous Electrical Activity, External Approach (ICD-10-PCS; principal; 2021-07-25)
DX: E11.10 Type 2 diabetes mellitus with ketoacidosis without coma (principal); G93.41 Metabolic encephalopathy; N17.0 Acute kidney failure with tubular necrosis; G91.2 (Idiopathic) normal pressure hydrocephalus; E03.9 Hypothyroidism, unspecified; E78.00 Pure hypercholesterolemia, unspecified; E86.0 Dehydration; E83.39 Other disorders of phosphorus metabolism; Z20.822 Contact with and (suspected) exposure to COVID-19; E83.42 Hypomagnesemia; E87.6 Hypokalemia; G40.909 Epilepsy, unspecified, not intractable, without status epilepticus; I48.91 Unspecified atrial fibrillation; F32.A Depression, unspecified; R19.7 Diarrhea, unspecified; R77.8 Other specified abnormalities of plasma proteins; Z91.14 Patient's other noncompliance with medication regimen; Z79.899 Other long term (current) drug therapy
CPT/HCPCS: 36415; 36600; 70450; 70551; 71045; 80048; 80053; 80305; 80320; 80329; 81001; 82140; 82550; 82607; 82803; 82948; 83036; 83605; 83735; 83880; 84100; 84145; 84443; 84484; 85007; 85018; 85025; 87040; 87077; 87081; 87186; 87635; 92508; 92616; 93005; 95816; 96374; 96375; 96376; 97110; 97162; 97530; 97535; 99291; 99292; C9803; G0378; J0360; J0696; J1650; J1815; J1940; J1953; J3370; J3475; J3480; J3490; J7030; J7040; J7042; J7050; J7070; J7120